=== PATIENT | female | born 1995 ===

== ENCOUNTER → 2022-07-17 | Outpatient (REF) | payer OTHER | LOC: M WUC 16:35 | PROVIDERS: ATTEND Physician Assistant | DX: R30.0 Dysuria (principal) ==

== ENCOUNTER 2023-04-01 12:14 | Outpatient (CLI) | payer OTHER ==
[~2023-04-01] VITALS: Ht 175.3 cm; Wt 104.2 kg
[2023-04-01 12:37] VITALS: BP 135/74
[2023-04-01 12:39] VITALS: BP 133/70; O2SAT 97
[2023-04-01] MEDS ORDERED: HOME MED LIST COMPLETE! XX SCH (12:45)
[2023-04-01] MEDS ORDERED: ACET500P3 PO (12:45)
[2023-04-01] MEDS ORDERED: PRENTAB9 PO (12:45)
[2023-04-01 13:23] LABS: APPEARANCE, URINE MANUAL HAZY (CLEAR); COLOR, URINE MANUAL YELLOW (YELLOW)
[2023-04-01 13:26] LABS: BILIRUBIN, URINE MANUAL NEGATIVE (NEGATIVE); BLOOD URINE MANUAL TRACE (NEGATIVE); GLUCOSE, URINE (UA) MANUAL NEGATIVE (NEGATIVE); KETONE, URINE MANUAL NEGATIVE (NEGATIVE); LEUKOCYTE ESTERASE, URINE MAN POSITIVE (NEGATIVE); NITRITE, URINE MANUAL NEGATIVE (NEGATIVE); PROTEIN, URINE MANUAL TRACE mg/dL (NEGATIVE); UROBILINOGEN, URINE MANUAL NORMAL (NORMAL)
[2023-04-01 13:48] LABS: AMORPHOUS SEDIMENT, URINE MOD AMOUNT (NEGATIVE); BACTERIA, URINE MOD AMOUNT; HYALINE CAST, URINE NONE SEEN /lpf (0-1); SQUAMOUS EPITHELIAL CELL URINE MOD AMOUNT /hpf (SMALL AMT); WBC, URINE 30-40 /hpf (0-3)
[2023-04-01 14:06] VITALS: BP 141/80
[2023-04-01] MEDS ORDERED: FOSFOMYCIN TROMETHAMINE 3 GM POWDER PACKET (MONUROL) PO ONE (15:00)
== END 2023-04-01 14:45 | disposition home or self-care (01) ==
LOC: M LDO 12:14
PROVIDERS: ATTEND Advanced Practice Midwife
DX: O23.593 Infection of other part of genital tract in pregnancy, third trimester (principal); Z3A.32 32 weeks gestation of pregnancy; O26.893 Other specified pregnancy related conditions, third trimester; M62.838 Other muscle spasm
CPT/HCPCS: 59025; 81000; 87088; 87186; G0463